=== PATIENT | female | born 1980 | race Caucasian/White ===

== ENCOUNTER 2022-10-19 15:37 | Emergency (ER) | payer SELFPAY ==
[2022-10-19 15:47] VITALS: BP 135/101; PULSE 112; RESP 16; TEMP 36.5; O2SAT 97; BMI 51.6
[2022-10-19 16:16] LABS: Add Manual Diff / Slide Review NO; Basophils Absolute Auto 100 /uL (0-100); Basophils Percent Auto 1.2 % (0-2); Eosinophils Absolute Auto 200 /uL (0-450); Eosinophils Percent Auto 2.6 % (2-4); Hematocrit 42.6 % (36-46); Hemoglobin 14.9 g/dL (12.0-16.0); Lymphocytes Absolute Auto 3500 /uL (1100-4500); Lymphocytes Percent Auto 42.9 % (25-40); Mean Corpuscular HGB Conc 34.9 % (30-36); Mean Corpuscular Hemoglobin 30.4 PG (26-34); Mean Corpuscular Volume 86.9 fL (80-100); Monocytes Absolute Auto 400 /uL (0-900); Monocytes Percent Auto 4.8 % (3-14); Neutrophils Absolute Auto 3900 /uL (1500-7000); Neutrophils Percent Auto 48.5 % (50-75); Platelet Count 268 X10^3/uL (150-400)
[2022-10-19 16:31] LABS: Alanine Aminotransferase 33 IU/L (<35); Albumin 4.3 g/dL (3.5-5.0); Albumin Globulin Ratio 1.4 (1.0-2.8); Alkaline Phosphatase 84 U/L (38-126); Aspartate Aminotransferase 38 IU/L (14-36); BUN Creatinine Ratio 12.1 (6-22); Bilirubin Total 1.2 mg/dL (0.2-1.3); Blood Urea Nitrogen 14 mg/dL (7-17); Calcium 9.2 mg/dL (8.4-10.2); Carbon Dioxide 23 mmol/L (22-32); Chloride 96 mmol/L (98-107); Estimated Glomerular Filt Rate > 60 mL/min (>60); Globulin 3.1 g/dL (1.7-4.1); Glucose 349 mg/dL (70-100); HEMOLYSIS 33 (0-50); Lipase 130 U/L (23-300); Potassium 3.7 mmol/L (3.4-5.1); Sodium 130 mmol/L (137-145); Total Protein 7.4 g/dL (6.3-8.2)
[2022-10-19 16:38] LABS: Bacteria Urine None Seen; Culture Indicated Urine Cult Not Indicated; RBC Urine 0-1/HPF (0-5/HPF); Squamous Epithelial Cell Urine 1-5 /HPF (0-5/HPF); WBC Urine 0-1/HPF (0-5/HPF)
--- NOTE | 2022-10-19 16:53 | ED_ITS ---
HPI - Abdominal Pain <DANA Hopper - Last Filed: 10/19/22 19:54> General Chief Complaint: Abdominal Pain Stated Complaint: ABD pain Time Seen by Provider: 10/19/22 16:18 Source: patient Mode of arrival: Ambulatory History of Present Illness HPI narrative: 41-year-old female, morbidly obese everyday smoker, with history of hypertension, diabetes and asthma, presents to the emergency department with fatigue and left-sided abdominal pain radiating to her left flank x5 days. Patient denies any history of similar symptoms but reports he has a familial history of gallstones and kidney stones. Last menstrual period was 3 weeks ago. Last bowel movement was this morning and normal. Related Data Home Medications Medication Instructions Recorded Confirmed ciclesonide 160 mcg/actuation 1 inh inhalation BID 10/19/22 10/19/22 aerosol inhaler (Alvesco) hydrochlorothiazide 25 mg tablet 25 mg PO DAILY 10/19/22 10/19/22 levothyroxine 50 mcg tablet 50 mcg PO QAM 10/19/22 10/19/22 losartan 50 mg tablet 25 mg PO DAILY 10/19/22 10/19/22 metformin 500 mg tablet 500 mg PO BID 10/19/22 10/19/22 rosuvastatin 20 mg tablet 30 mg PO DAILY 10/19/22 10/19/22 Allergies Allergy/AdvReac Type Severity Reaction Status Date / Time Penicillins Allergy Severe Anaphylaxis Verified 10/19/22 15:46 Review of Systems <DANA Hopper - Last Filed: 10/19/22 19:54> Review of Systems Narrative: Narrative: See HPI. GENERAL: Denies chills, fever, sweats. Endorses fatigue. HEENT: Denies sinus pain, ear pain, sore throat, difficulty swallowing, dizziness. RESPIRATORY: Denies dyspnea, cough, wheezing, sputum. CARDIOVASCULAR: Denies chest pain, palpitations, edema. GASTROINTESTINAL: Denies nausea, vomiting, diarrhea, constipation. Endorses 6/10 left sided abdominal pain. : Denies dysuria, frequency, incontinence, hematuria, urinary retention, flank pain. MSK: Denies weakness, joint pain, or bony pain. SKIN: Denies rash, skin lesions, or pruritis. NEUROLOGIC: Denies weakness, dizziness, headache, numbness, confusion. PSYCHIATRIC: No concerning psychosocial issues. Patient History <DANA Hopper - Last Filed: 10/19/22 19:54> Medical History Diabetes High cholesterol Hypertension Hypothyroid Social History Smoking Status: Current every day smoker Smoking Status: Current every day smoker tobacco type: cigarettes Substance Use Type: marijuana Exam <DANA Hopper - Last Filed: 10/19/22 19:54> Narrative Exam Narrative: Exam Narrative: GENERAL: This is a well-nourished, well-developed patient, in no acute distress. HEAD: Atraumatic. Normocephalic. EYES: Pupils equal round and reactive.No scleral icterus, injection or drainage. ENT: Nose without bleeding, purulent drainage. Airway patent. NECK: Trachea midline. No JVD. CARDIOVASCULAR: Regular rate and rhythm without murmurs, peripheral pulses intact, cap refill <2 sec. RESPIRATORY: Breath sounds equal and clear bilaterally. No wheezes, rales, or rhonchi. No cough. No increased respiratory effort. No accessory muscle use. GASTROINTESTINAL: Abdomen soft, mild left-sided tenderness, nondistended without guarding or rebound. No suprapubic pain. No CVA tenderness. MSK: Moves all extremities. Normal range of motion, no clubbing or edema. Neurovascularly intact. NEURO: A&O x 3. SKIN: Warm, dry, no rashes or lesions noted. Initial Vital Signs Initial Vital Signs: Vital Signs Temperature 97.7 F 10/19/22 15:47 Pulse Rate 112 H 10/19/22 15:47 Respiratory Rate 16 10/19/22 15:47 Blood Pressure 135/101 H 10/19/22 15:47 Pulse Oximetry 97 10/19/22 15:47 Oxygen Delivery Method Room Air 10/19/22 15:47 Reviewed <Wing Martins DO - Last Filed: 10/19/22 20:36> Initial Vital Signs Initial Vital Signs: Vital Signs Temperature 97.7 F 10/19/22 15:47 Pulse Rate 112 H 10/19/22 15:47 Respiratory Rate 16 10/19/22 15:47 Blood Pressure 135/101 H 10/19/22 15:47 Pulse Oximetry 97 10/19/22 15:47 Oxygen Delivery Method Room Air 10/19/22 15:47 Course <DANA Hopper - Last Filed: 10/19/22 19:54> Orders Ordered: ED Orders 10/19/22 16:07 Complete Blood Count AUTO DIFF Stat Comprehensive Metabolic Panel Stat Lipase Stat 10/19/22 16:09 Urine Microscopic Stat 10/19/22 16:56 CT abdomen pelvis w con Stat Discontinued Medications Sodium Chloride (Normal Saline 0.9%) 1,000 mls @ 1,000 mls/hr IV BOLUS ONE Stop: 10/19/22 19:16 Last Infusion: 10/19/22 20:06 Dose: 0 mls/hr Documented By: Admin: 10/19/22 18:43 Dose: 1,000 mls/hr Documented By: ANDRES Ondansetron HCl (Ondansetron 4 Mg Odt) 4 mg PO NOW PRN PRN Reason: Nausea And Vomiting Ondansetron HCl (Ondansetron 4 Mg/2 Ml Inj) 4 mg IV NOW PRN PRN Reason: Nausea And Vomiting Vital Signs Vital signs: Vital Signs - 8 hr 10/19/22 15:47 10/19/22 19:02 10/19/22 19:02 Temperature 97.7 F Pulse Rate 112 H 79 Respiratory Rate 16 Blood Pressure 135/101 H 131/75 Pulse Oximetry 97 96 Oxygen Delivery Method Room Air 10/19/22 20:06 Temperature Pulse Rate 78 Respiratory Rate 15 Blood Pressure 122/78 Pulse Oximetry 99 Oxygen Delivery Method Room Air <Wing Martisn DO - Last Filed: 10/19/22 20:36> Orders Ordered: ED Orders 10/19/22 16:07 Complete Blood Count AUTO DIFF Stat Comprehensive Metabolic Panel Stat Lipase Stat 10/19/22 16:09 Urine Microscopic Stat 10/19/22 16:56 CT abdomen pelvis w con Stat Discontinued Medications Sodium Chloride (Normal Saline 0.9%) 1,000 mls @ 1,000 mls/hr IV BOLUS ONE Stop: 10/19/22 19:16 Last Infusion: 10/19/22 20:06 Dose: 0 mls/hr Documented By: Admin: 10/19/22 18:43 Dose: 1,000 mls/hr Documented By: ANDRES Ondansetron HCl (Ondansetron 4 Mg Odt) 4 mg PO NOW PRN PRN Reason: Nausea And Vomiting Ondansetron HCl (Ondansetron 4 Mg/2 Ml Inj) 4 mg IV NOW PRN PRN Reason: Nausea And Vomiting Vital Signs Vital signs: Vital Signs - 8 hr 10/19/22 15:47 10/19/22 19:02 10/19/22 19:02 Temperature 97.7 F Pulse Rate 112 H 79 Respiratory Rate 16 Blood Pressure 135/101 H 131/75 Pulse Oximetry 97 96 Oxygen Delivery Method Room Air 10/19/22 20:06 Temperature Pulse Rate 78 Respiratory Rate 15 Blood Pressure 122/78 Pulse Oximetry 99 Oxygen Delivery Method Room Air MDM - Abdominal Pain <DANA Hopper - Last Filed: 10/19/22 19:54> Differential Diagnosis Differential diagnosis: Likely abdominal pain, calculus of kidney, constipation, diverticulitis, pancreatitis and small bowel obstruction Lab Data 10/19/22 16:07 10/19/22 16:07 Labs: Lab Results 10/19/22 10/19/22 10/19/22 Range/Units 16:07 16:07 16:09 WBC 8.0 (4.5-11.0) X10^3/uL RBC 4.90 (4.0-5.2) X10^6/uL Hgb 14.9 (12.0-16.0) g/dL Hct 42.6 (36-46) % MCV 86.9 (80-100) fL MCH 30.4 (26-34) PG MCHC 34.9 (30-36) % RDW 14.0 (11.6-14.8) % Plt Count 268 (150-400) X10^3/uL Neut % (Auto) 48.5 L (50-75) % Lymph % (Auto) 42.9 H (25-40) % [place] % (Auto) 4.8 (3-14) % Eos % (Auto) 2.6 (2-4) % Baso % (Auto) 1.2 (0-2) % Neut # (Auto) 3900 (8449-3024) /uL Lymph # (Auto) 3500 (0550-7495) /uL [place] # (Auto) 400 (0-900) /uL Eos # (Auto) 200 (0-450) /uL Baso # (Auto) 100 (0-100) /uL Sodium 130 L (137-145) mmol/L Potassium 3.7 (3.4-5.1) mmol/L Chloride 96 L (98-107) mmol/L Carbon Dioxide 23 (22-32) mmol/L BUN 14 (7-17) mg/dL Creatinine 1.16 H (0.52-1.04) mg/dL Estimated GFR > 60 (>60) mL/min BUN/Creatinine Ratio 12.1 (6-22) Glucose 349 H (70-100) mg/dL Calcium 9.2 (8.4-10.2) mg/dL Total Bilirubin 1.2 (0.2-1.3) mg/dL AST 38 H (14-36) IU/L ALT 33 (<35) IU/L Alkaline Phosphatase 84 (38-126) U/L Total Protein 7.4 (6.3-8.2) g/dL Albumin 4.3 (3.5-5.0) g/dL Globulin 3.1 (1.7-4.1) g/dL Albumin/Globulin Ratio 1.4 (1.0-2.8) Lipase 130 (23-300) U/L Urine RBC 0-1/hpf (0-5/HPF) Urine WBC 0-1/hpf (0-5/HPF) Ur Squamous Epith Cells 1-5 /hpf (0-5/HPF) Urine Bacteria None seen (None) Ur Culture Indicated? Cult not indicated Point of care testing: Point of Care Testing Test Results Negative Urine Dip Bedside Urine Glucose 1000 mg/dl Bedside Urine Bilirubin - Negative Bedside Urine Ketone - Negative Urine Specific [place] 1.010 Bedside Urine Occult Blood +/- Bedside Urine pH 6.5 Bedside Urine Protein - Negative Bedside Urine Urobilinogen - Negative Bedside Urine Nitrite - Negative Bedside Urine Leukocytes - Negative Esterase Imaging Data CT scan - abdomen/pelvis: Radiologist's Impression: [address] [address] [address] Scan Report Signed Patient: Rosanne Becerra MR#: [id number] : 1980 Acct:[id number] Age/Sex: 41 / F Date of Service: 10/19/22 Loc: ED Accession Number: [id number] ?? Procedure: CT abdomen pelvis w con Ordering Provider: Wing Ohara PROCEDURE:? CT ABDOMEN PELVIS W CON ? INDICATIONS:? Left-sided abdominal pain ? TECHNIQUE:? After the administration of intravenous contrast, axial sections acquired from the lung bases to the pubic symphysis.? Coronal and sagittal reformats were performed.? For radiation dose reduction, the following was used:? automated exposure control, adjustment of mA and/or kV according to patient size.? ? COMPARISON:? None. ? FINDINGS:? Image quality:? Excellent.? ? Lung bases:? Unremarkable. Heart:? No significant findings. ? ABDOMEN: Liver:? Liver is enlarged and diffusely hypoattenuating.? Focal spurring along the gallbladder fossa.? ? Gallbladder:? Unremarkable Biliary ducts:? Unremarkable.? ? Pancreas:? Unremarkable.? ? Spleen:? Unremarkable.? ? Adrenal Glands:? Unremarkable.? ? Kidneys and Ureters:? Unremarkable.? ? ? Stomach and Bowel:? Stomach, small bowel loops, and colon are unremarkable.? Peritoneum:? No abnormal intraperitoneal fluid.? No free air.? ? Ventral Wall: ? Small fat containing periumbilical hernia. Abdominal Nodes:? No retroperitoneal or mesenteric adenopathy by size criteria.? Vessels:? Aorta and inferior vena cava are normal in size.? Scattered vascular calcifications. ? PELVIS: Pelvic Organs:? Unremarkable.? ? Bladder:? Unremarkable.? ? Pelvic Nodes: No enlarged lymph nodes.? Miscellaneous: No hernias are seen. ? ? ? Bones:? No acute abnormality.? There is a calcification likely of a herniated disc at L5-S1 resulting in at least mild spinal canal stenosis. ? ? IMPRESSION:? ? Hepatomegaly with findings most consistent with fat extend ptosis. ? No acute intra-abdominal/pelvic abnormality. ? ? Dictated by: Timbo Villeda D.O. on 10/19/2022 at 16:41 ? ? Approved by: Timbo Villeda D.O. on 10/19/2022 at 16:47 ? MDM Narrative Medical decision making narrative: 41-year-old female with left-sided abdominal pain x5 days. Assessment was concerning due to location and duration of abdominal pain. Labs were non concerning, with the exception of elevated glucose,secondary to her diabetes. A1C results not available due to being a send out lab. Patient endorses 6/10 left-sided abdominal pain but declined pain medications. CT obtained and reveals hepatomegaly but no cause for left sided abdominal pain. NS infusion given with reports of improvement of pain and improvement of vital signs. Will discharge patient home with instructions to make sure she hydrates well, controls her diabetes to the best that she can and follow up with her family doctor. Patient verbalized understanding was agreeable with course of action. <Wing Martins, - Last Filed: 10/19/22 20:36> Lab Data Labs: Lab Results 10/19/22 10/19/22 10/19/22 Range/Units 16:07 16:07 16:09 WBC 8.0 (4.5-11.0) X10^3/uL RBC 4.90 (4.0-5.2) X10^6/uL Hgb 14.9 (12.0-16.0) g/dL Hct 42.6 (36-46) % MCV 86.9 (80-100) fL MCH 30.4 (26-34) PG MCHC 34.9 (30-36) % RDW 14.0 (11.6-14.8) % Plt Count 268 (150-400) X10^3/uL Neut % (Auto) 48.5 L (50-75) % Lymph % (Auto) 42.9 H (25-40) % [place] % (Auto) 4.8 (3-14) % Eos % (Auto) 2.6 (2-4) % Baso % (Auto) 1.2 (0-2) % Neut # (Auto) 3900 (6128-9510) /uL Lymph # (Auto) 3500 (2808-5361) /uL [place] # (Auto) 400 (0-900) /uL Eos # (Auto) 200 (0-450) /uL Baso # (Auto) 100 (0-100) /uL Sodium 130 L (137-145) mmol/L Potassium 3.7 (3.4-5.1) mmol/L Chloride 96 L (98-107) mmol/L Carbon Dioxide 23 (22-32) mmol/L BUN 14 (7-17) mg/dL Creatinine 1.16 H (0.52-1.04) mg/dL Estimated GFR > 60 (>60) mL/min BUN/Creatinine Ratio 12.1 (6-22) Glucose 349 H (70-100) mg/dL Calcium 9.2 (8.4-10.2) mg/dL Total Bilirubin 1.2 (0.2-1.3) mg/dL AST 38 H (14-36) IU/L ALT 33 (<35) IU/L Alkaline Phosphatase 84 (38-126) U/L Total Protein 7.4 (6.3-8.2) g/dL Albumin 4.3 (3.5-5.0) g/dL Globulin 3.1 (1.7-4.1) g/dL Albumin/Globulin Ratio 1.4 (1.0-2.8) Lipase 130 (23-300) U/L Urine RBC 0-1/hpf (0-5/HPF) Urine WBC 0-1/hpf (0-5/HPF) Ur Squamous Epith Cells 1-5 /hpf (0-5/HPF) Urine Bacteria None seen (None) Ur Culture Indicated? Cult not indicated Point of care testing: Point of Care Testing Test Results Negative Urine Dip Bedside Urine Glucose 1000 mg/dl Bedside Urine Bilirubin - Negative Bedside Urine Ketone - Negative Urine Specific [place] 1.010 Bedside Urine Occult Blood +/- Bedside Urine pH 6.5 Bedside Urine Protein - Negative Bedside Urine Urobilinogen - Negative Bedside Urine Nitrite - Negative Bedside Urine Leukocytes - Negative Esterase Discharge Plan Departure Patient Disposition: Home Clinical Impression: Abdominal pain Instructions: DI for Abdominal Pain-Adult Activity Restrictions/Additional Instructions: *You have been diagnosed with abdominal pain with unknown etiology. My assessment was encouraging and no life-threatening symptoms recognized. Your CT scan revealed no cause for your left-sided abdominal pain. I suspect pain can be caused through dehydration and your diabetes. Please make sure you are drinking plenty of water, at least 60 oz of water per day, and do your best to manage your diabetes. Please follow-up with your family doctor this week. For any worsening symptoms, that include intolerable pain, shortness of breath, chest pain, etc., please return to the emergency department. *What to do: *Please continue to take your regular medications as directed. [ ] New medication prescriptions sent to your pharmacy: [ ] [ ] New medication written as a paper prescription [x ] No new medications given *Please follow up with your primary care provider in 2-3 days, call for an appointment. Let them know you were seen in the Emergency Department and that we ask that you be seen in follow up. We will electronically transmit a record of today's note if your PCP is in our system *If you do not have a primary care provider please contact the [facility] Resource line at [phone]. They will ask some questions about your medical history and help get you set up with a doctor in the community. ? Return to ER if you should have any new, worsening or concerning symptoms, such as worsening pain, severe headache, confusion, chest pain, difficulty breathing, fever greater than 101 F, shaking chills, persistent vomiting to the point that you cannot drink fluids, or other new or worsening symptoms. Prescriptions: No Action losartan 50 mg tablet 25 mg PO DAILY Patient Comments: TAKE ONE- HALF TABLET BY MOUTH DAILY levothyroxine 50 mcg tablet 50 mcg PO QAM Patient Comments: Take 1 tablet (0.05 mg) by mouth daily . Take on an empty stomach, at least 30 minutes before food. hydrochlorothiazide 25 mg tablet 25 mg PO DAILY Patient Comments: TAKE ONE TABLET BY MOUTH ONE TIME DAILY rosuvastatin 20 mg tablet 30 mg PO DAILY Patient Comments: Take one and one-half (1.5) tablets by mouth daily Alvesco 160 mcg/actuation HFA aerosol inhaler 1 inh INHALATION BID Patient Comments: INHALE ONE PUFF BY MOUTH TWICE DAILY metformin 500 mg Tablet 500 mg PO BID Stand Alone Forms: Patient Portal/API <Wing Martins, DO - Last Filed: 10/19/22 20:36> Cosign ED Attending Cosignature Attestation: Dr Martins Co-Sign Statement: I was available for consultation during this patient's emergency department visit. This chart is signed by myself for a dministrative purposes only. I did not have direct contact with this patient during this visit. They were seen independently by the APC.
--- NOTE | 2022-10-19 16:56 | DI.CT.S_ITS ---
PROCEDURE: CT ABDOMEN PELVIS W CON INDICATIONS: Left-sided abdominal pain TECHNIQUE: After the administration of intravenous contrast, axial sections acquired from the lung bases to the pubic symphysis. Coronal and sagittal reformats were performed. For radiation dose reduction, the following was used: automated exposure control, adjustment of mA and/or kV according to patient size. COMPARISON: None. FINDINGS: Image quality: Excellent. Lung bases: Unremarkable. Heart: No significant findings. ABDOMEN: Liver: Liver is enlarged and diffusely hypoattenuating. Focal spurring along the gallbladder fossa. Gallbladder: Unremarkable Biliary ducts: Unremarkable. Pancreas: Unremarkable. Spleen: Unremarkable. Adrenal Glands: Unremarkable. Kidneys and Ureters: Unremarkable. Stomach and Bowel: Stomach, small bowel loops, and colon are unremarkable. Peritoneum: No abnormal intraperitoneal fluid. No free air. Ventral Wall: Small fat containing periumbilical hernia. Abdominal Nodes: No retroperitoneal or mesenteric adenopathy by size criteria. Vessels: Aorta and inferior vena cava are normal in size. Scattered vascular calcifications. PELVIS: Pelvic Organs: Unremarkable. Bladder: Unremarkable. Pelvic Nodes: No enlarged lymph nodes. Miscellaneous: No hernias are seen. Bones: No acute abnormality. There is a calcification likely of a herniated disc at L5-S1 resulting in at least mild spinal canal stenosis. IMPRESSION: Hepatomegaly with findings most consistent with fat extend ptosis. No acute intra-abdominal/pelvic abnormality. Dictated by: Timbo Villeda D.O. on 10/19/2022 at 16:41 Approved by: Timbo Villeda D.O. on 10/19/2022 at 16:47
[2022-10-19] MEDS: SODIUM CHLORIDE 0.9% 1,000 ML 1000 ML IV (18:43)
[2022-10-19 19:02] VITALS: BP 131/75; PULSE 79; O2SAT 96
[2022-10-19 20:06] VITALS: BP 122/78; PULSE 78; RESP 15; O2SAT 99
[2022-10-21 07:43] LABS: Labcorp Hemoglobin (Hb) A1c 10.8 % (4.8-5.6)
== END 2022-10-19 20:09 | disposition home or self-care (01) ==
PROVIDERS: Emergency Medicine; Emergency Provider Registered Nurse
DX: R10.9 Unspecified abdominal pain (principal)
CPT/HCPCS: 36415; 74177; 80053; 81003; 81015; 81025; 83036; 83690; 85025; 96360; 99284